=== PATIENT | male | born 1975 | race Caucasian/White ===

== ENCOUNTER 2025-04-01 10:39 | Outpatient (OUT) | payer OTHER, SELFPAY ==
--- OUTSIDE RECORDS SUMMARY | 2025-03-28 11:30 | XMS_ITS | Encounter Summary ---
Author Organization [facility] Fantom [facility] tem Address [id number] [place] [address] Care Team Providers Care Unclaimed Property Manager Name Role Phone Elfego Garcia DO Primary Care Provider [phone] Reason for Visit * ReasonCommentsWeight Check Encounter Details DateTypeDepartmentCare Team (Latest Contact Info)Pxfwouksqbn05/17/2025 11:30 AM ESTOffice Visit [facility] Phys[facility] Internal Medicine - Family Medicine [address] [place] [address] Elfego Garcia DO [address], [facility] [address] Class 2 severe obesity due to excess calories with serious comorbidity and body mass index (BMI) of37.0 to 37.9 in adult Social History Tobacco UseTypesPacks/DayYears UsedDateSmoking Tobacco: FormerCigarettes0.512 12/02/2001 - 12/02/2013CigarsSmokeless Tobacco: FormerChewAlcohol UseStandard Drinks/WeekCommentsYes2 (1 standard drink = 0.6 oz pure alcohol)dailyAHC UtilitiesAnswerDate RecordedIn the past 12 months has the Trist, gas, oil, or water Seriosity threatened to shut off services in your home?No09/03/2023Social Connection and Isolation PanelAnswerDate RecordedIn a typical week, how many times do you talk on the phone with family, friends, or neighbors?More than three times a week12/02/2022How often do you get together with friends or relatives?More than three times a week12/02/2022How often do you attend evangelical or catholic services?More than 4 times per year12/02/2022o you belong to any clubs or organizations such as evangelical groups, unions, fraternal or athletic meme ups, or school groups?Yes12/02/2022How often do you attend meetings of the clubs or organizations you belong to?More than 4 times per year12/02/2022re you , , , , never , or living with a partner? Khmnwea7412/02/2022UDIT-CAnswerDate RecordedQ1: How often do you have a drink containing alcohol?4 or more times a week12/02/2022Q2: How many drinks containing alcohol do you have on a typical day when you are drinking?1 or 2 12/02/2022Q3: How often do you have six or more drinks on one occasion?Never 12/02/2022Overall Financial Resource Strain (CARDIA)AnswerDate RecordedHow hard is it for you to pay for the very basics like food, housing, medical care, and heating?Not hard at all12/02/2022HQ-2AnswerDate RecordedTotal Dothi38905/28/2024 [employer] - Occupational Stress Questionnaire AnswerDate RecordedDo you feel stress - tense, restless, nervous, or anxious, or unable to sleep at night because yourmind is troubled all the time - these days? Only a tcrghr9712/02/2022Exercise Vital SignAnswerDate RecordedOn average, how many days per week do you engage in moderate to strenuous exercise (like a brisk walk)?3 days12/27/2024On average, how many minutes do you engage in exercise at this level?20 min12/27/2024PRAPARE - TransportationAnswerDate RecordedIn the past 12 months, has lack of transportation kept you from medical appointments or from getting medications?No12/02/2022In the past 12 months, has lack of transportation kept you from meetings, work, or from getting things needed for daily living?No12/02/2022Housing InstabilityAnswerDate RecordedAre you worried or concerned that in the next two months you may not have stable housing that you own, rent or stay in as a part of a household?No12/02/2022hildcareAnswer Date RecordedDo problems getting director of early childhood education make it difficult for you to work or study?No12/02/2022EmploymentAnswerDate RecordedDo you need help finding a local career center and/or a training program?No12/02/2022Hunger ScreeningAnswerDate RecordedWithin the past 12 months we worried whether our food would run out before we got money to buy more.Never True03/28/2025Within the past 12 months the food we bought just didn't last and we didn't have money to get more.Never True03/28/2025Purpose - LifeAnswerDate RecordedI have a purpose and direction in my life.Strongly Agree12/02/2022Sex and Gender InformationValueDate RecordedSex Assigned at PmzgnHkxx65/20/2024 8:28 AM EDTLegal TvhFklu7712/15/2014 11:32 AM EDT Gender CsudzljmIlas18/20/2024 8:28 AM EDTSexual WeyaxvscbxiWukxfnxz51/20/2024 8:28 AM EDTdocumented as of this encounter Last Filed Vital Signs Vital SignReadingTime TakenCommentsBlood Blpmmqag542/7003/28/2025 11:41 AM EST Eqnru396903/28/2025 11:41 AM VNCJrgpsjjsgur20.3 ??C (99.1 ??F)03/28/2025 11:41 AM ESTRespiratory Pjyo247705/28/2024 11:41 AM ESTOxygen Zpbuekkeau28%03/28/2025 11:41 AM ESTInhaled Oxygen Concentration--Dxpvor982.5 kg (272 lb 3.2 oz)03/28/2025 11:41 AM CIGEgrais007.9 cm (6' 0.01 )03/28/2025 11:41 AM ESTBody Mass Index36.91 03/28/2025 11:41 AM ESTdocumented in this encounter Progress Notes * Elfego Garcia, DO - 03/28/2025 11:30 AM EST Subjective Patient ID: Davin Livingston is a 49 y.o. male. Davin presents today for a weight recheck. He is using the phentermine. He does not have any significant side effects although he does report vivid dreams and sometimes he will wake up in the middle of the night. He is not sure if it his his sleep apnea or if it is the medication. He also sometimes will wake up with sore right shoulder. He is happy with the medication otherwise. He would like to continue. He has been busy at work and at home and has not been able to exercise this past month so he is not been losing weight like he was. He has been splitting and storing wood for the winter. The following portions of the patient's history were reviewed and updated as appropriate: allergies, current medications, past family history, past medical history, past social history, past surgicalhistory, problem list, and medication reconciliation was completed including current medication andpost discharge medication. Review of Systems Constitutional: Positive for activity change. Respiratory: Negative. Cardiovascular: Negative. Psychiatric/Behavioral: Positive for sleep disturbance. Objective Physical Exam Vitals reviewed. Constitutional: General: He is not in acute distress. Appearance: Normal appearance. He is obese. He is not ill-appearing. HENT: Head: Normocephalic. Cardiovascular: Rate and Rhythm: Normal rate and regular rhythm. Heart sounds: Normal heart sounds. No murmur heard. Pulmonary: Effort: Pulmonary effort is normal. No respiratory distress. Breath sounds: Normal breath sounds. No wheezing, rhonchi or rales. Neurological: General: No focal deficit present. Mental Status: He is alert and oriented to person, place, and time. Psychiatric: Mood and Affect: Mood normal. Behavior: Behavior normal. Thought Content: Thought content normal. Judgment: Judgment normal. Assessment/Plan Davin was seen today for weight check. Diagnoses and all orders for this visit: Class 2 severe obesity due to excess calories with serious comorbidity and body mass index (BMI) of37.0 to 37.9 in adult - phentermine 37.5 MG capsule; Take 1 capsule (37.5 mg total) by mouth every morning before breakfast. He is taking phentermine and it is helping curb his appetite although he did not lose weight this past month. He had not been exercising like he was. He was encouraged to resume his exercise regimen.We talked about his sleeping issues and he would still like to continue the medication as these areminor concerns. He is using his CPAP. We will continue the medication for another month. He needs to lose about 15 lb in his next month documented in this encounter Plan of Treatment DateTypeDepartmentCare Team (Latest Contact Info)Kjlqotxgdnv12/17/2025 11:30 AM ESTOffice Visit [facility] [address] [place] [address] Elfego Garcia DO [address] [address] documented as of this encounter Visit Diagnoses Diagnosis Class 2 severe obesity due to excess calories with serious comorbidity and body mass index (BMI) of37.0 to 37.9 in adult documented in this encounter Additional Health Concerns AssessmentNoted TimePHQ-9 Depression Total Score: 11:41 AM ESTA Body Mass Index follow-up plan has been documented for the nkojxtb7001/27/2025 2:40 PM EDTdocumented as of this encounter Care Teams Team MemberRelationshipSpecialtyStart DateEnd Date Elfego Garcia DO [address] [place] [address] PCP - GeneralFamily Medicine07/21/24documented as of this encounter
--- OUTSIDE RECORDS SUMMARY | 2025-04-01 10:41 | XMS_ITS | Clinical Summary ---
Author Organization [facility] Address [address] [place] [address] Care Team Providers Care Cable Strander Name Role Phone Elfego Garcia MD Primary Care Provider + [phone] Active Problems ProblemNoted DateDiagnosed DateObstructive apnea09/01/2023aytime iaviyqszoftabmp92/22/9470Kuixbnc46/22/1736Prggupaqec48/22/2024 Social History Tobacco UseTypesPacks/DayYears UsedDateSmoking Tobacco: Never AssessedSex and Gender InformationValueDate RecordedSex Assigned at BirthNot on fileLegal Sex Male07/24/2022 7:22 PM EDTGender IdentityNot on fileSexual OrientationNot on file Plan of Treatment Not on file Insurance Care Teams Team MemberRelationshipSpecialtyStart DateEnd Date Elfego Garcia MD [facility]09/02/23
--- OUTSIDE RECORDS SUMMARY | 2025-04-01 10:41 | XMS_ITS | Clinical Summary ---
Author Organization [facility] Address [address] [facility] [place] [address] Care Team Providers Care Real Estate Instructor Name Role Phone Unavailable Primary Care Provider Unavailabl e Source Comments The following information is NOT included in Care Everywhere downloads:Psychiatric notes, ECG results, Cardiac Rehab notes, Pulmonary Function notes, data from SmartForms (includes but not limited toPregnancy data,audiograms, eye exams, pre-surgical evaluation notes, well-child exam data).[facility] Allergies Active AllergyReactionsCriticalityNoted DateCommentsSulfa Myricqwhegv68/31/2014 Medications No known medications Active Problems ProblemNoted DateDiagnosed Date(BWC) RT 2ND Traumatic amputation of other finger(s) (complete) (partial), without mention of gslzeuroqshy71/31/2014 Social History Tobacco UseTypesPacks/DayYears UsedDateSmoking Tobacco: Every DayCigarettesSex and Gender InformationValueDate RecordedSex Assigned at BirthNot on fileLegal NohSfcr3506/11/2013 6:50 PM ESTGender IdentityNot on fileSexual OrientationNot on file Last Filed Vital Signs Vital SignReadingTime TakenCommentsBlood Ferleoev668/7906/11/2013 11:49 PM EST Xmhck663406/11/2013 11:49 PM NDTKlrcnffpipd24.4 ??C (99.3 ??F)06/11/2013 8:14 PM ESTRespiratory Urdv098206/11/2013 11:49 PM ESTOxygen Dusieeyryt88%06/11/2013 11:49 PM ESTInhaled Oxygen Concentration--Weight--Height--Body Mass Index-- Plan of Treatment Health MaintenanceDue DateLast VpavCeointbjWhnujetqvos77/25/1976HIV Test 10/03/1990Hepatitis C Poegzpar52/25/1994Tdap Qjyzdsh8910/03/1993Hepatitis A (HAV) Vaccine (optional start 19+ years)10/03/1994Hepatitis B (HBV) Vaccine (1 of 3 - 19+ 3-dose series)10/03/19941845Iqiunbmwjmd83/25/2011CRC Bptzftpsn11/25/2021 Cologuard (Stool DNA)10/03/2020FIT10/03/2020OVID-19 Vaccine ( - 2024- season)2025Influenza Vaccine (#1)2025Shingles (RZV) Vaccine (1 of 2) 10/03/2025Pneumococcal Vaccine(s)Aged OutNo longer eligible based on patient's age to complete this topic Insurance
--- OUTSIDE RECORDS SUMMARY | 2025-04-01 10:41 | XMS_ITS | Clinical Summary ---
Author Organization [employer] tem Address [id number] [address] [place] [address] Care Team Providers Care In Home Baby Sitter Name Role Phone RadhaElfego Merary HERBERT Primary Care Provider [phone] Allergies Active AllergyReactionsCriticalityNoted DateCommentsClarithromycinHives 12/02/2022Sulfa (Sulfonamide Antibiotics)Hives06/11/2013 Medications MedicationSigDispense QuantityRefillsLast FilledStart DateEnd DateStatus atorvastatin (LIPITOR) 10 mg tablet TAKE 1 TABLET BY MOUTH IN THE MORNING FOR HIGH CHOLESTEROL 90 tablet 5Active buPROPion XL (WELLBUTRIN XL) 150 mg 24 hr tablet Indications:Depression, unspecified depression typeTAKE 1 TABLET BY MOUTH EVERY MORNING. GENERIC EQUIVALENT FOR WELLBUTRIN XL. 90 tablet 5Active valsartan (DIOVAN) 80 mg tablet TAKE 1 TABLET BY MOUTH IN THE MORNING 30 tablet 5Active diclofenac (VOLTAREN) 75 mg EC tablet TAKE 1 TABLET BY MOUTH 2 TIMES A DAY NEEDED FOR PAIN. GENERIC EQUIVALENT FOR VOLTAREN 180 tablet 5Active phentermine 37.5 MG capsule Indications:Class 2 severe obesity due to excess calories with serious comorbidity and body mass index (BMI) of37.0 to 37.9 in adultTake 1 capsule (37.5 mg total) by mouth every morning before breakfast. 30 capsule 5Active diclofenac (VOLTAREN) 75 mg EC tablet TAKE 1 TABLET BY MOUTH 2 TIMES A DAY NEEDED FOR PAIN. GENERIC EQUIVALENT FOR VOLTAREN 180 tablet Discontinued phentermine 37.5 MG capsule Indications:Class 2 severe obesity due to excess calories with serious comorbidity and body mass index (BMI) of37.0 to 37.9 in adultTake 1 capsule (37.5 mg total) by mouth every morning before breakfast. 30 capsule Discontinued(Reorder) Active Problems ProblemNoted DateDiagnosed DateAllergic contact dermatitis due to plants, except food08/30/20248867Lyssckiqz82/19/2025enign paroxysmal positional vblwmqs1807/28/2024 Ldhrgnle19/06/2024lass 2 severe obesity due to excess calories with serious comorbidity and body mass index (BMI) of36.0 to 36.9 in adult12/05/2023arpal tunnel syndrome of left wrist09/03/2023aytime kwrdhexdziviwub92/22/2024 Hwzjgogtsd70/22/1178Qmwzgmmkzpi75/22/2024omplete tear of scapholunate ligament 12/02/2022Scapholunate advanced collapse of wrist12/02/2022Hyperlipidemia 12/02/2022Sleep apnea in adult12/02/2022Ventral zrwhfl0112/02/2022ain in right hand04/25/2017Traumatic amputation of digit of right hand06/11/2013Hypertension Resolved Problems ProblemNoted DateDiagnosed DateResolved DateCervical kvhmgmhwqoh48/17/2024 11/21/2023Herniated cervical disc/ervical radiculopathy at C8/04/2024Morbid oqhnwlw17 Encounters DateTypeDepartmentCare McsvKomhvrshzeu80/17/2025 11:30 AM ESTOffice Visit [facility] [place] [address] [place] [address] Elfego Garcia, Class 2 severe obesity due to excess calories with serious comorbidity and body mass index (BMI) of37.0 to 37.9 in adult03/28/20258608Qlrhue51/31/2025Refill [facility] [address] [place] [address] Elfego Garcia, DO 02/28/2025Refill [facility] [address] [place] [address] Mamta Peterson, MOSS BLEACHER Class 2 severe obesity due to excess calories with serious comorbidity and body mass index (BMI) of37.0 to 37.9 in adult02/24/2025Refill [facility] [address] [place] [address] Elfego Garcia, DO 02/21/2025 11:45 AM EDTOffice Visit [facility] [address] [place] [address] Elfego Garcia, DO Sleep apnea in adult (Primary Dx); Class 2 severe obesity due to excess calories with serious comorbidity and body mass index (BMI) of36.0 to 36.9 in adult02/21/20258152Ucvmvf54/29/2025Orders Only [facility] [address] [place] [address] Elfego Garcia, DO 02/07/2025Telephone [facility] [address] [place] [address] Mamta Peterson, RENEA 01/28/2025Refill [facility] [address] [place] [address] Elfego Garcia, DO Class 2 severe obesity due to excess calories with serious comorbidity and body mass index (BMI) of37.0 to 37.9 in adult01/27/2025 11:00 AM EDTOffice Visit [facility] [address] [place] [address] Elfego Garcia, DO Class 2 severe obesity due to excess calories with serious comorbidity and body mass index (BMI) of37.0 to 37.9 in adult01/27/20257658Lsnfys98/13/2025Refill [facility] [address] [place] [address] Elfego Garcia, Depression, unspecified depression type01/19/2025 10:45 AM EDTOffice Visit [facility] [address] [place] [address] Elfego Garcia, Rhus dermatitis (Primary Dx)01/19/20255873Lrhovi70/09/2025Orders Only [facility] [address] [place] [address] Elfego Garcia DO 01/18/2025Telephone [facility] [address] [place] [address] Rossy Nunn CMA from Last 3 Months Family History Medical HistoryRelationNameCommentsBack ProblemsFatherGlaucomaFatherHearing loss Maternal GrandfatherMultiple myelomaMaternal GrandmotherNo Known ProblemsMother GlaucomaPaternal GrandfatherLung cancerPaternal GrandfatherAlzheimer's disease Paternal Grandmotherdied in mid to late 70'sAnesthesia problemsNeg HxRelation NameStatusCommentsBrotherAliveFatherAliveMaternal GrandfatherAliveMaternal GrandmotherDeceasedMotherAlivePaternal GrandfatherDeceasedPaternal Grandmother DeceasedSonAlive Social History Tobacco UseTypesPacks/DayYears UsedDateSmoking Tobacco: FormerCigarettes0.512 12/02/2001 - 12/02/2013CigarsSmokeless Tobacco: FormerChew Tobacco Cessation:Counseling Given: Not Answered Alcohol UseStandard Drinks/WeekCommentsYes2 (1 standard drink = 0.6 oz pure alcohol)dailyAHC UtilitiesAnswerDate RecordedIn the past 12 months has the [employer], oil, or water [email or web address] threatened to shut off services in your home?No09/03/2023Social Connection and Isolation PanelAnswerDate RecordedIn a typical week, how many times do you talk on the phone with family, friends, or neighbors?More than three times a week12/02/2022How often do you get together with friends or relatives?More than three times a week12/02/2022How often do you attend druze or baptism services?More than 4 times per year12/02/2022o you belong to any clubs or organizations such as druze groups, unions, fraKuotus or athletic groups, or school groups?Yes12/02/2022How often do you attend meetings of the clubs or organizations you belong to?More than 4 times per year12/02/2022 Are you , , , , never , or living with a partner?Nigugsw9512/02/2022UDIT-CAnswerDate RecordedQ1: How often do you have a [...] care, and heating?Not hard at all12/02/2022HQ-2AnswerDate RecordedTotal Iaiec61705/28/2024 [facility] [place] of Occupational Health - Occupational Stress Questionnaire AnswerDate RecordedDo you feel stress - tense, restless, nervous, or anxious, or unable to sleep at night because yourmind is troubled all the time - these days? Only a lzfcug9812/02/2022Exercise Vital SignAnswerDate RecordedOn average, how many days [...] of a household?No12/02/2022hildcareAnswer Date RecordedDo problems getting early childhood services coordinator make it difficult for you to work [...] Agree12/02/2022Sex and Gender InformationValueDate RecordedSex Assigned at EpcmoKkfj31/20/2024 8:28 AM EDTLegal QgpFkep4412/15/2014 11:32 AM EDT Gender CyoocfjmJiey14/20/2024 8:28 AM EDTSexual EmucekzyjsxMurcojbc22/20/2024 8:28 AM EDT Last Filed Vital Signs Vital SignReadingTime TakenCommentsBlood Poldxond324/7003/28/2025 11:41 AM EST Aoqju064203/28/2025 11:41 AM VJXEiavlgxubfn24.3 ??C (99.1 ??F)03/28/2025 11:41 AM ESTRespiratory Cztm518105/28/2024 11:41 AM ESTOxygen Ewjnuqvcoc73%03/28/2025 11:41 AM ESTInhaled Oxygen Concentration--Xvidru088.5 kg (272 lb 3.2 oz)03/28/2025 11:41 AM XJPMehvbk122.9 cm (6' 0.01 )03/28/2025 11:41 AM ESTBody Mass Index36.91 03/28/2025 11:41 AM EST Plan of Treatment DateTypeDepartmentCare Team (Latest Contact Info)Hkuwvltfqnz20/17/2025 11:30 AM ESTOffice Visit [facility] [address] [place] [address] Elfego Garcia, DO [address], [place] [address] Health MaintenanceDue DateLast DoneCommentsDTaP,Tdap and Td Vaccines (1 - Tdap) 10/03/1994COVID-19 Vaccine (3 - 2024- season)/, 08/10/2020 Influenza Hrlklsl73/01/2025Colon Cancer Screening 3 Year Gghkkwauu09/11/2026 12/20/2022, 12/11/2022dult BMI Follow Up Plan/dult BMI Ensysumag95/Depression Hcpiyejkp37/Tobacco Pnucvzknt47 [employer] Not on file Procedures Procedure NamePriorityDate/TimeAssociated DiagnosisCommentsCOLOGUARD NON-NLIPFHUMCYcanbch70/02/2023 11:30 PM EDT Special screening for malignant neoplasm of colon from Last 3 Months or Most Recently Relevant to Health Maintenance Results * Cologuard [facility] (12/11/2022 11:30 PM EDT)ComponentValueRef RangeTest MethodAnalysis TimePerformed AtPathologist SignatureEXTERNAL COLOGUARDNegative Bdevzbnx64/11/2023 10:28 AM EDTEXreal trends (CLIA #:[id number]) Comment: NEGATIVE TEST RESULT. A negative Cologuard result indicates a low likelihood that a colorectal cancer (CRC) or advanced adenoma (adenomatous polyps with more advanced pre-malignant features) ??is present. The chance that a person with a negative Cologuard test has a colorectal cancer is less than 1in 1500 (negative predictive value >99.9%) or has an advanced adenoma is less than 5.3% (negative predictive value 94.7%). These data are based on a prospective cross-sectional study of 10,000individuals at average risk for colorectal cancer who were screened with both Cologuard and colonoscopy. (Elaine Chinchilla al, N Engl J Med 2014;370(14):1695-3330) The normal value (reference range) for this assay is negative. COLOGUARD RE-SCREENING RECOMMENDATION: Periodic colorectal cancer screening is an important part ofpreventive healthcare for asymptomatic individuals at average risk for colorectal cancer. ??Following a negative Cologuard result, the [place] [employer] Society and U.S. Multi-Society Task Force screening guidelines recommend a Cologuard re-screening interval of 3 years. References: [place] [employer] Guideline for Colorectal Cancer Screening: https://www.cancer.or g/cancer/eqraw-vesbhl-yimszl/kyytegpty-kycgwojni-ldangsw/acs-recommendations.htm omero; Sergey HARDING, Tamara PUTNAM, Osvaldo HubbardK, Colorectal Cancer Screening: Recommendations for Physicians and Patients from the U.S. Multi-Society Task Force on Colorectal Cancer Screening , Am J Gastroenterology 2017; 112:9063-0097. TEST DESCRIPTION: Composite algorithmic analysis of stool DNA-biomarkers with hemoglobin immunoassay. ?? Quantitative values of individual biomarkers are not reportable and are not associated with individual biomarker result reference ranges. Cologuard is intended for colorectal cancer screening ofadults of either sex, 45 years or older, who are at average-risk for colorectal cancer (CRC). Cologuard has been approved for use by the U.S. FDA. The performance of Cologuard was established in a cross sectional study of average-risk adults aged 50-84. Cologuard performance in patients ages 45 to 49 years was estimated by sub-group analysis of near-age groups. Colonoscopies performed for a positive result may find as the most clinically significant lesion: colorectal cancer [4.0%], advanced adenoma (including sessile serrated polyps greater than or equal to 1cm diameter) [20%] or non- advanced adenoma [31%]; or no colorectal neoplasia [45%]. These estimates are derived from a prospective cross-sectional screening study of 10,000 individuals at average risk for colorectal cancer who were screened with both Cologuard and colonoscopy. (Elaine Romano et al, N Engl J Med 2014;370(14):5540-9900.) Cologuard may produce a false negative or false positive result (no colorectal cancer or precancerous polyp present at colonoscopy follow up). A negative Cologuard test result does not guarantee the absence of CRC or advanced adenoma (pre-cancer). The current Cologuard screening interval is every 3 years. ([place] [employer] Society and U.S. Multi-Society Task Force). Cologuard performance data in a 10,000 patient pivotal study using colonoscopy as the reference method can be accessed at the following location: www.[employer]/results. Additional description of the Cologuard test process, warnings and precautions can be found at www.Yoopayoguard.[employer]. Specimen (Source)Anatomical Location / LateralityCollection Method / Volume Collection TimeReceived TimeStool specimen (specimen)Rectum structure / Unknown 12/11/2022 11:30 PM EDT12/13/2022 6:46 PM EDT Narrative Authorizing ProviderResult TypeResult StatusElfego Garcia DOLAB ORDERABLES Final ResultPerforming OrganizationAddressCity/State/ZIP CodePhone Number [phone] (CLIA #:[id number]) [address] [place] [address], from Last 3 Months or Most Recently Relevant to Health Maintenance Insurance Care Teams Team MemberRelationshipSpecialtyStart DateEnd Date Elfego Garcia DO [address], [place] [address] [facility]07/21/24
--- OUTSIDE RECORDS SUMMARY | 2025-04-01 10:41 | XMS_ITS | Encounter Summary ---
Author Organization [employer] tem Address [id number] [address] [place] [address] Care Team Providers Care Firer Low Pressure Name Role Phone Radha Elfego Reagan DO Primary Care Provider + [phone] Encounter Details DateTypeDepartmentCare Team (Latest Contact Info)Dgltxrozgdo99/17/2025Travel Social History Tobacco UseTypesPacks/DayYears UsedDateSmoking Tobacco: FormerCigarettes0.512 12/02/2001 - 12/02/2013CigarsSmokeless Tobacco: FormerChewAlcohol UseStandard Drinks/WeekCommentsYes2 (1 standard drink = 0.6 oz pure alcohol)dailyAHC UtilitiesAnswerDate RecordedIn the past 12 months has the electric, gas, oil, or water company threatened to shut off services in your home?No09/03/2023Social Connection and Isolation PanelAnswerDate RecordedIn a typical week, how many times do you talk on the phone with family, friends, or neighbors?More than three times a week12/02/2022How often do you get together with friends or relatives?More than three times a week12/02/2022How often do you attend nondenominational or baptist services?More than 4 times per year12/02/2022o you belong to any clubs or organizations such as nondenominational groups, unions, fraternal or athletic meme ups, or school groups?Yes12/02/2022How often do you attend meetings of the clubs or organizations you belong to?More than 4 times per year12/02/2022re you , , , , never , or living with a partner? Yptnffc3312/02/2022UDIT-CAnswerDate RecordedQ1: How often do you have a [...] care, and heating?Not hard at all12/02/2022HQ-2AnswerDate RecordedTotal Bvhlf60105/28/2024 [facility] [place] of Occupational Health - Occupational Stress Questionnaire AnswerDate RecordedDo you feel stress - tense, restless, nervous, or anxious, or unable to sleep at night because yourmind is troubled all the time - these days? Only a zhyjnm4312/02/2022Exercise Vital SignAnswerDate RecordedOn average, how many days [...] of a household?No12/02/2022hildcareAnswer Date RecordedDo problems getting child caregiver private home make it difficult for you to work [...] Agree12/02/2022Sex and Gender InformationValueDate RecordedSex Assigned at AzrmcFzml92/20/2024 8:28 AM EDTLegal WbgWdnd8812/15/2014 11:32 AM EDT Gender VgicwlanMmob70/20/2024 8:28 AM EDTSexual UznkrxxmudgZejrfkhe22/20/2024 8:28 AM EDTdocumented as of this encounter Plan of Treatment DateTypeDepartmentCare Team (Latest Contact Info)Sujooaomzqi08/17/2025 11:30 AM ESTOffice Visit [facility] [address] [place] [address] Elfego Garcia DO [address], [facility] [place] [address] documented as of this encounter Visit Diagnoses Not on filedocumented in this encounter Additional Health Concerns AssessmentNoted TimePHQ-9 Depression Total Score: 11:41 AM ESTA Body Mass Index follow-up plan has been documented for the bwowwby7201/27/2025 2:40 PM EDTdocumented as of this encounter Care Teams Team MemberRelationshipSpecialtyStart DateEnd Date Elfego Garcia DO [address] [place] [address] PCP - GeneralFamily Medicine07/21/24documented as of this encounter
== END 2025-04-01 10:40 | disposition home or self-care (01) ==
LOC: FHNEUROLOG 10:39
PROVIDERS: PCP Psychiatry & Neurology Neurology; Visit Provider Psychiatry & Neurology Neurology
DX: G47.33 Obstructive sleep apnea (adult) (pediatric) (principal)
CPT/HCPCS: G0463